=== PATIENT | female | born 1955 | race Caucasian/White ===

== ENCOUNTER → 2017-04-10 | Outpatient (CLI) | payer OTHER, MEDICAID | LOC: BRMIMAGING 11:03 | PROVIDERS: ATTEND Internal Medicine Rheumatology | DX: M81.0 Age-related osteoporosis without current pathological fracture (principal) ==

== ENCOUNTER 2017-10-08 12:19 | Emergency (ER) | payer OTHER, MEDICAID ==
[2017-10-08 12:22] VITALS: TEMP 97.9
[2017-10-08] MEDS ORDERED: ONDANSETRON DISINTEGRATING 4 MG TAB ONE (12:34)
[2017-10-08] MEDS ORDERED: ONDANSETRON DISINTEGRATING 4 MG TAB PO ONE (12:35)
--- NOTE | 2017-10-08 12:52 | CPEKG ---
Heart Rate: 57 RR Interval: 1053 P-R Interval: 160 QRSD Interval: 76 QT Interval: 456 QTC Interval: 444 P Aragon: 58 QRS Aragon: 58 T Wave Aragon: -12 EKG Severity - BORDERLINE ECG - EKG Impression: SINUS RHYTHM EKG Impression: BORDERLINE T ABNORMALITIES, INFERIOR LEADS Electronically Signed By: Lidia Shell 08-Oct-2017 15:27:06
--- NOTE | 2017-10-08 13:06 | EDPHY ---
H & P Stated Complaint: "I have esophageal spasm";epigastric pain < 1hr;similiar past episodes HPI/ROS: CHIEF COMPLAINT: "I think I had an esophageal spasm" HISTORY OF PRESENT ILLNESS: The patient is a 62 y/o female complaining of severe esophageal and epigastric pain onset at 11:40, 2 hours ago. She has had prior episodes of esophageal spasms. During the first event, she though she was having a heart attack and went to urgent care. She reports all her cardiac tests were normal at that visit and that her symptoms improved with nitroglycerine. She has had multiple endoscopies that did not identify any obvious stricture. In the remote past she took medication for GERD, but has not felt the need for such medication in quite awhile. A remote endoscopy showed erosive gastritis, but she states that this was a long time ago. Her most recent prior episode of substernal pain occurred a month ago and resolved spontaneously after about 10-20 minutes. She did not seek medical attention. Today, she was sitting waiting for a ride when she developed substernal and epigastric pain extending vertically and radiating through to her back. She has associated nausea. Symptoms have improved since arrival here. She treats her symptoms with apple cider vinegar and has not taken antacid medication in a long time. No known cardiac disease, hypertension, hypercholesterolemia, diabetes REVIEW OF SYSTEMS: A ten point review of systems was performed and is negative with the exception of the items mentioned in the HPI. Past medical history: 1. Esophageal spasms per her report 2. Acid reflux 3. Remote history erosive gastritis 4. Rheumatoid arthritis - methotrexate, Plaquenil 5. Anxiety, depression, PTSD 6. Osteoarthritis 7. Osteopenia 8. Remote history of heavy alcohol use 9. Alopecia 10. Fibromyalgia Past surgical history: 1. Cholecystectomy 2. Knee surgery 3. Tonsillectomy Family history: Noncontributory Social history: Rare alcohol use. Disabled. [facility] of the [facility]. PCP: Dr. Ashley Arvizu. 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 General Appearance: Alert. Vital signs reviewed. Eyes: Pupils equal and round, no conjunctival injection, no discharge. Anicteric. ENT, Mouth: Mucous membranes are moist, no oropharyngeal erythema or edema. Neck: No lymphadenopathy, supple. Respiratory: Lungs are clear to auscultation; no wheezes, rales, or rhonchi. Cardiovascular: Regular rate and rhythm; no murmur, rub, or gallop. Gastrointestinal: Abdomen is soft and nontender, no masses or organomegaly, bowel sounds normal. Skin: Warm and dry, no rashes on exposed skin, normal color. Back: Nontender to palpation over the thoracolumbar spine. No CVAT. Extremities: No lower extremity edema, no calf tenderness or swelling. Neurological: Alert and oriented. Moving all four extremities easily and equally. Psychiatric: Normal affect. - Personal History Current Tetanus Diphtheria and Acellular Pertussis (TDAP): Yes Tetanus Vaccine Date: 2011 - Medical/Surgical History Hx Asthma: No Hx Chronic Respiratory Disease: No Hx Diabetes: No Hx Cardiac Disease: No Hx Renal Disease: No Hx Cirrhosis: No Hx Alcoholism: No Hx HIV/AIDS: No Hx Splenectomy or Spleen Trauma: No Other PMH: Depression, anxiety, insomnia, fibromyalgia, arthritis, GERD, esophageal spasms, cholecystectomy, benign breast tumor, tonsillectomy, bilateral knee surgeries, bilateral wrist surgeries - Social History Smoking Status: Former smoker Constitutional: Initial Vital Signs Temperature (C) 36.6 C 10/08/17 12:19 Heart Rate 66 10/08/17 12:19 Respiratory Rate 20 10/08/17 12:19 Blood Pressure 122/73 H 10/08/17 12:19 O2 Sat (%) 100 10/08/17 12:19 O2 Delivery Mode Room Air Allergies/Adverse Reactions: latex [Latex] Allergy (Unknown, Verified 10/08/17 12:19) allergy test- anaphlaxis. asthma gabapentin Allergy (Verified 10/08/17 12:19) soy Allergy (Verified 10/08/17 12:19) Home Medications: Medication Instructions Recorded Oxycodone Ir [Oxy Ir 5 mg (RX)] 15 mg PO Q6H 05/21/12 traZODone [traZODone 150MG (*)] 150 mg PO HS 05/21/12 Ranitidine HCl [Ranitidine HCl 150 150 mg PO HS 09/17/13 mg] buPROPion XL [Wellbutrin 150mg XL] 300 mg PO DAILY 09/17/13 Albuterol [Ventolin Hfa Inhaler] 1 puffs IH Q4H PRN 01/20/16 Dexlansoprazole [Dexilant] 60 mg PO DAILY 02/25/16 Diclofenac Sodium 1% [Voltaren Gel 1 epifanio TP QID PRN 01/20/16 (*)] Hydroxychloroquine Sulfate 300 mg PO DAILY 01/20/16 [Plaquenil 200 mg (*)] Leflunomide [Arava 20 mg (*)] 20 mg PO DAILY 07/20/16 Buprenorphine [Butrans 20 mcg/hr] 1 each TD Q7D 07/22/16 FLUoxetine [Prozac 10 MG (*)] 10 mg PO DAILY 07/22/16 Fluticasone Nasal [Flonase Nasal 1 sprays NASAL DAILY 07/22/16 [place]] Herbals/Supplements -Info Only 1 ea PO DAILY 07/22/16 Lidocaine 5% [Lidoderm 5% Patch 1 ea TD DAILY 07/22/16 (*)] Melatonin [Melatonin 3 MG (*)] 3 mg PO HS 07/22/16 Olopatadine HCl [Patanase] 2 sprays EACHNARE BID 07/22/16 [place]-3 Fatty Acids [Fish Oil 1000 1,000 mg PO DAILY 07/22/16 mg (*)] Hyoscyamine Sulfate [Levsin, 0.125 - 0.25 mg SL Q4H PRN #20 tab 07/23/16 [place]ax-Sl 0.125 mg (*)] Levothyroxine [Synthroid 137 mcg 137 mcg PO DAILY06 #30 tab 07/23/16 (*)] Medical Decision Making - Diagnostics Imaging Results: Imaging Impressions Chest X-Ray 10/08/17 13:47 Impression: 1. Right middle lobe calcified granuloma. 2. No acute pneumonia. 3. No pneumothorax. Imaging: I viewed and interpreted images myself ED Course/Re-evaluation: This is a 62 y/o female with a reported history of esophageal spasms who presents with a 2-hour history of esophageal and epigastric pain. Her pain has improved since arrival here, though she continues to have nausea. Her exam is unremarkable. Plan for IV, labs, EKG, chest x-ray, and symptom management. Her 1st troponin will not be very sensitive due to short duration of symptoms. 4mg IV Zofran, 0.4mg SL Nitrostat, and 20mg IV famotidine administered. The 12 lead EKG was interpreted by myself. Sinus mechanism rate 57. See hard copy and/or "tracemaster" electronic copy for interpretation. 1450: Reevaluated patient and discussed results thus far. Her pain has improved with nitro. Troponin and lipase are still pending. Her LFTs are notably elevated compared to prior labs. She says her cold roll catcher checks LFTs every 3 months. She did have a slight elevation when they were last checked. She is being given copies of these labs to share with her cold roll catcher. Lipase is normal. She remained pain free throughout the rest of her emergency department stay. Initial troponin is normal. She has a HEART score of 1, for age between 45 and 65. I feel that she is low risk for coronary artery disease. She has seen Dr. Migel Shahid in the past. She is comfortable returning home. We reviewed the danger signs that should prompt her to return and she assures me that she will do so if she has required current chest pain. She will follow up with Dr. Shahid. She is also going to resume taking an acid blocking medication. In the past she has taken Zantac successfully. She has this at home. Differential Diagnosis: Chest pain including but not limited to myocardial ischemia, esophageal spasm, pulmonary embolus, chest wall pain, pleural inflammation and pulmonary infectious causes. - Data Points Laboratory Results: Laboratory Results 10/08/17 13:20 10/08/17 13:20 10/08/17 10/08/17 10/08/17 13:20 13:20 13:20 WBC 6.22 10^3/uL 10^3/uL (3.80-9.50) RBC 4.13 10^6/uL L 10^6/uL (4.18-5.33) Hgb 12.8 g/dL g/dL (12.6-16.3) Hct 37.2 % L % (38.0-47.0) MCV 90.1 fL fL (81.5-99.8) MCH 31.0 pg pg (27.9-34.1) MCHC 34.4 g/dL g/dL (32.4-36.7) RDW 13.5 % % (11.5-15.2) Plt Count 186 10^3/uL 10^3/uL (150-400) MPV 10.2 fL fL (8.7-11.7) Neut % (Auto) 55.9 % % (39.3-74.2) Lymph % (Auto) 35.5 % % (15.0-45.0) [place] % (Auto) 7.1 % % (4.5-13.0) Eos % (Auto) 0.8 % % (0.6-7.6) Baso % (Auto) 0.5 % % (0.3-1.7) Nucleat RBC Rel Count 0.0 % % (0.0-0.2) Absolute Neuts (auto) 3.48 10^3/uL 10^3/uL (1.70-6.50) Absolute Lymphs (auto) 2.21 10^3/uL 10^3/uL (1.00-3.00) Absolute Monos (auto) 0.44 10^3/uL 10^3/uL (0.30-0.80) Absolute Eos (auto) 0.05 10^3/uL 10^3/uL (0.03-0.40) Absolute Basos (auto) 0.03 10^3/uL 10^3/uL (0.02-0.10) Absolute Nucleated RBC 0.00 10^3/uL 10^3/uL (0-0.01) Immature Gran % 0.2 % % (0.0-1.1) Immature Gran # 0.01 10^3/uL 10^3/uL (0.00-0.10) Sodium 135 mEq/L mEq/L (134-144) Potassium 3.8 mEq/L mEq/L (3.5-5.2) Chloride 103 mEq/L mEq/L (97-110) Carbon Dioxide 21 mEq/l L mEq/l (22-31) Anion Gap 11 mEq/L mEq/L (8-16) BUN 19 mg/dL mg/dL (7-23) Creatinine 1.0 mg/dL mg/dL (0.6-1.0) Estimated GFR 56 Glucose 76 mg/dL mg/dL (70-100) Calcium 9.3 mg/dL mg/dL (8.5-10.4) Total Bilirubin 0.5 mg/dL mg/dL (0.1-1.4) AST 276 IU/L H IU/L (14-46) ALT 204 IU/L H IU/L (9-52) Alkaline Phosphatase 98 IU/L IU/L (38-126) Troponin I 0.012 ng/mL ng/mL (0.000-0.034) Total Protein 6.3 g/dL g/dL (6.3-8.2) Albumin 4.1 g/dL g/dL (3.5-5.0) Lipase 68 IU/L IU/L (23-300) Medications Given: Nitroglycerin (Nitrostat) 0.4 mg SL Q5M PRN PRN Reason: Chest Pain Last Admin: 10/08/17 14:02 Dose: 0.4 mg Discontinued Medications Famotidine/Sodium Chloride (Pepcid 20 Mg (Premix)) 50 mls @ 200 mls/hr IV EDNOW ONE Stop: 10/08/17 14:02 Last Admin: 10/08/17 14:01 Dose: 50 mls Ondansetron HCl (Zofran Odt) 4 mg PO EDNOW ONE Stop: 10/08/17 12:36 Last Admin: 10/08/17 12:39 Dose: 4 mg Ondansetron HCl (Zofran) 4 mg IVP EDNOW ONE Stop: 10/08/17 13:49 Last Admin: 10/08/17 14:01 Dose: 4 mg Oxycodone HCl (Oxycodone Ir) 15 mg PO ONCE ONE Stop: 10/08/17 15:09 Last Admin: 10/08/17 15:40 Dose: 15 mg Departure - Departure Disposition: Home, Routine, Self-Care Clinical Impression: Elevated LFTs Chest pain Qualifiers: Chest pain type: other chest pain Qualified Code(s): R07.89 - Other chest pain Condition: Good Instructions: Chest Pain (ED) Additional Instructions: Call Dr. Shahid tomorrow and let him know about today's ED visit. If you have recurrent pain you should return for re-evaluation. Referrals: Ashley Arvizu MD [Primary Care Provider] - As per Instructions Italo Shahid MD [Medical Doctor] - As per Instructions Report Scribed for: Lidia Shell Report Scribed by: Lin Forte Date of Report: 10/08/17 Time of Report: 13:49 Physician Review and Approval Statement: 10/08/17 13:06 Portions of this note were transcribed by the site medical director. I, Dr. Lidia Shell, personally performed the history, physical exam, and medical decision- making; and confirmed the accuracy of the information in the transcribed note.
[2017-10-08 13:28] VITALS: PULSE 65; RESP 18
[2017-10-08 13:32] LABS: % IMMATURE GRANULYOCYTES 0.2 % (0.0-1.1); ABSOLUTE IMMATURE GRANULOCYTES 0.01 10^3/uL (0.00-0.10); ADD DIFF? NO; ADD MORPH? NO; ADD SCAN? NO; ATYPICAL LYMPHOCYTE FLAG 10 (0-99); FRAGMENT RBC FLAG 0 (0-99); HEMATOCRIT 37.2 % (38.0-47.0); HEMOGLOBIN 12.8 g/dL (12.6-16.3); LEFT SHIFT FLG 0 (0-99); LIPEMIA HEMOLYSIS FLAG 90 (0-99); MEAN CELL HEMOGLOBIN CONCENTR. 34.4 g/dL (32.4-36.7); MEAN CELL VOLUME 90.1 fL (81.5-99.8); MEAN PLATELET VOLUME 10.2 fL (8.7-11.7); PLATELET CLUMPS FLAG 0 (0-99); PLATELET COUNT 186 10^3/uL (150-400); RED BLOOD CELL COUNT 4.13 10^6/uL (4.18-5.33); RED CELL DISTRIBUTION WIDTH 13.5 % (11.5-15.2)
[2017-10-08 13:45] LABS: ALANINE AMINOTRANSFERASE 204 IU/L (9-52); ALBUMIN 4.1 g/dL (3.5-5.0); ALKALINE PHOSPHATASE 98 IU/L (38-126); ANION GAP 11 mEq/L (8-16); ASPARTATE AMINOTRANSFERASE 276 IU/L (14-46); BILIRUBIN,TOTAL 0.5 mg/dL (0.1-1.4); CALCIUM 9.3 mg/dL (8.5-10.4); CARBON DIOXIDE 21 mEq/l (22-31); CHLORIDE 103 mEq/L (97-110); GLOMERULAR FILTRATION RATE 56; GLUCOSE 76 mg/dL (70-100); POTASSIUM 3.8 mEq/L (3.5-5.2); SODIUM 135 mEq/L (134-144); TOTAL PROTEIN 6.3 g/dL (6.3-8.2)
[2017-10-08] MEDS ORDERED: NITROGLYCERIN 0.4 MG BTL SL PRN (13:47)
[2017-10-08] MEDS ORDERED: ONDANSETRON 4 MG/2 ML VIAL IVP ONE (13:48)
[2017-10-08] MEDS ORDERED: FAMOTIDINE 20 MG/NACL 50 ML IV ONE (13:48)
[2017-10-08] MEDS ORDERED: oxyCODONE IR 15 MG TAB PO ONE (15:08)
[2017-10-08 15:16] LABS: TROPONIN I 0.012 ng/mL (0.000-0.034)
[2017-10-08 15:41] VITALS: BP 133/83; O2SAT 97
== END 2017-10-08 16:05 | disposition home or self-care (01) ==
DX: R07.89 Other chest pain (principal); R94.5 Abnormal results of liver function studies; Z85.3 Personal history of malignant neoplasm of breast; Z87.891 Personal history of nicotine dependence; Z91.040 Latex allergy status
CPT/HCPCS: 71020; 93005; 96374; 96375; 99285; J2405

== ENCOUNTER 2018-02-16 11:12 | Emergency (ER) | payer OTHER, MEDICAID ==
[2018-02-16 11:21] VITALS: TEMP 98.8
--- NOTE | 2018-02-16 11:26 | EDPHY ---
H & P Stated Complaint: fever, body aches, flu like symptoms Time Seen by Provider: 02/16/18 11:26 HPI/ROS: HPI: This is a 62-year-old female who presents with Chief Complaint: fever, body aches, flu like symptoms Location: Body Quality: Aches Duration: Since this morning Signs and Symptoms: no fever, + nausea, no vomiting, no hematemesis, no blood in stool, no abdominal bloating, no diarrhea, no back pain, no urinary symptoms , no vaginal bleeding discharge, no indigestion, no chest pain, no shortness of breath Timing: Acute on chronic Severity: Moderate to severe Context: Patient has a history of depression, fibromyalgia, rheumatoid arthritis presents with multiple somatic complaints that worsened this morning. Patient reports she has recently changed primary care providers and is scheduled to see her new primary care provider Dr. Funk on Sunday. Received influenza vaccine this year. Patient complains of generalized body aches, "not feeling right in something is wrong", nonproductive cough, nausea, lower abdominal fullness. Patient reports she has a decreased appetite. Pain regimen medication includes Butrans patch and oxycodone p.r.n. Denies any headaches her history of migraine headaches. History of lung disease. Modifying Factors: Normal medication Comment: ROS: see HPI Constitutional: No fever, no chills, no weight loss Eyes: No blurred vision Respiratory: No shortness of breath, + cough Cardiovascular: No chest pain, no palpitations Gastrointestinal: No nausea, no vomiting, no diarrhea, no hematemesis, no blood in stool Genitourinary: No dysuria, no blood in urine Extremities: No myalgias, no edema Neurologic: No weakness, no numbness Skin: No rashes, no petechiae Hematologic: No bruising, no bleeding MEDICAL/SURGICAL/SOCIAL HISTORY: Medical/surgical history: Depression, anxiety, insomnia, fibromyalgia, arthritis, GERD, esophageal spasms, cholecystectomy, benign breast tumor, tonsillectomy, bilateral knee surgeries, bilateral wrist surgeries Social history: Unemployed. CONSTITUTIONAL: Chronically ill-appearing white female with a flat affect, sitting in a dark room using her ball cap to shield the light coming from over the sink, awake and alert, no obvious distress HEENT: Atraumatic and normocephalic, PERRL, EOMI. Tympanic membranes clear. Oropharynx clear, no exudate and moist pink mucosa. Airway patent. No lymphadenopathy. No meningismus. Cardiovascular: Normal S1/S2, regular rate, regular rhythm, without murmur rub or gallop. PULMONARY/CHEST: Symmetrical and nontender. Clear to auscultation bilaterally. Good air movement. No accessory muscle usage. ABDOMEN: Soft, nondistended, nontender, no rebound, no guarding, no peritoneal signs, no masses or organomegaly. No CVAT. EXTREMITIES: 2/2 pulses, strength 5/5, no deformities, no clubbing, no cyanosis or edema. NEUROLOGICAL: no focal neuro deficits. GCS 15. SKIN: Warm and dry, pallor, no erythema. no rash. Good capillary refill. Source: Patient Exam Limitations: No limitations - Personal History Current Tetanus Diphtheria and Acellular Pertussis (TDAP): No Tetanus Vaccine Date: 2011 - Medical/Surgical History Hx Asthma: No Hx Chronic Respiratory Disease: No Hx Diabetes: No Hx Cardiac Disease: No Hx Renal Disease: No Hx Cirrhosis: No Hx Alcoholism: No Hx HIV/AIDS: No Hx Splenectomy or Spleen Trauma: No Other PMH: Depression, anxiety, insomnia, fibromyalgia, arthritis, GERD, esophageal spasms, cholecystectomy, benign breast tumor, tonsillectomy, bilateral knee surgeries, bilateral wrist surgeries - Social History Smoking Status: Former smoker Constitutional: Initial Vital Signs Temperature (C) 37.1 C 02/16/18 11:17 Heart Rate 68 02/16/18 11:17 Respiratory Rate 16 02/16/18 11:17 Blood Pressure 107/49 L 02/16/18 11:17 O2 Sat (%) 96 02/16/18 11:17 O2 Delivery Mode Room Air Allergies/Adverse Reactions: latex [Latex] Allergy (Unknown, Verified 10/08/17 12:19) allergy test- anaphlaxis. asthma gabapentin Allergy (Verified 10/08/17 12:19) soy Allergy (Verified 10/08/17 12:19) Home Medications: Medication Instructions Recorded Oxycodone Ir [Oxy Ir 5 mg (RX)] 15 mg PO Q6H 05/21/12 traZODone [traZODone 150MG (*)] 150 mg PO HS 05/21/12 Ranitidine HCl [Ranitidine HCl 150 150 mg PO HS 09/17/13 mg] buPROPion XL [Wellbutrin 150mg XL] 300 mg PO DAILY 09/17/13 Albuterol [Ventolin Hfa Inhaler] 1 puffs IH Q4H PRN 01/20/16 Dexlansoprazole [Dexilant] 60 mg PO DAILY 01/20/16 Diclofenac Sodium 1% [Voltaren Gel 1 epifanio TP QID PRN 01/20/16 (*)] Hydroxychloroquine Sulfate 300 mg PO DAILY 01/20/16 [Plaquenil 200 mg (*)] Leflunomide [Arava 20 mg (*)] 20 mg PO DAILY 07/20/16 Buprenorphine [Butrans 20 mcg/hr] 1 each TD Q7D 07/22/16 FLUoxetine [Prozac 10 MG (*)] 10 mg PO DAILY 07/22/16 Fluticasone Nasal [Flonase Nasal 1 sprays NASAL DAILY 07/22/16 [place]] Herbals/Supplements -Info Only 1 ea PO DAILY 07/22/16 Lidocaine 5% [Lidoderm 5% Patch] 1 ea TD DAILY 07/22/16 Melatonin [Melatonin 3 MG (*)] 3 mg PO HS 07/22/16 Olopatadine HCl [Patanase] 2 sprays EACHNARE BID 07/22/16 [place]-3 Fatty Acids [Fish Oil 1000 1,000 mg PO DAILY 07/22/16 mg (*)] Hyoscyamine Sulfate [Levsin, 0.125 - 0.25 mg SL Q4H PRN #20 tab 07/23/16 Hyomax-Sl 0.125 mg (*)] Levothyroxine [Synthroid 137 mcg 137 mcg PO DAILY06 #30 tab 07/23/16 (*)] Medical Decision Making - Diagnostics Imaging Results: Imaging Impressions Chest X-Ray 02/16/18 12:02 Impression: No source for pain identified. ED Course/Re-evaluation: Chest x-ray, urinalysis, labs, blood cultures ordered Patient requesting to receive 1 L normal saline Urinalysis grossly unremarkable. Labs grossly unremarkable except for serum glucose of 61; patient admits that she does not eat frequently and does not eat significant amount of food. Chest x-ray my read shows no opacity, no effusion, no pneumothorax, no widened mediastinum Advised supportive care and follow up with PCP This patient was seen under the supervision of my secondary supervising physician. I evaluated care for this patient independently. Discussed this patient with who did not see the patient. Differential Diagnosis: Differential including but not limited to viral syndromes including influenza, urinary tract infection, pneumonia and sepsis. - Data Points Laboratory Results: Laboratory Results 02/16/18 13:06 02/16/18 13:06 02/16/18 02/16/18 02/16/18 13:06 13:06 12:08 WBC 7.59 10^3/uL 10^3/uL (3.80-9.50) RBC 4.35 10^6/uL 10^6/uL (4.18-5.33) Hgb 13.1 g/dL g/dL (12.6-16.3) Hct 39.4 % % (38.0-47.0) MCV 90.6 fL fL (81.5-99.8) MCH 30.1 pg pg (27.9-34.1) MCHC 33.2 g/dL g/dL (32.4-36.7) RDW 12.9 % % (11.5-15.2) Plt Count 173 10^3/uL 10^3/uL (150-400) MPV 10.3 fL fL (8.7-11.7) Neut % (Auto) 64.7 % % (39.3-74.2) Lymph % (Auto) 26.0 % % (15.0-45.0) [place] % (Auto) 8.3 % % (4.5-13.0) Eos % (Auto) 0.4 % L % (0.6-7.6) Baso % (Auto) 0.3 % % (0.3-1.7) Nucleat RBC Rel Count 0.0 % % (0.0-0.2) Absolute Neuts (auto) 4.92 10^3/uL 10^3/uL (1.70-6.50) Absolute Lymphs (auto) 1.97 10^3/uL 10^3/uL (1.00-3.00) Absolute Monos (auto) 0.63 10^3/uL 10^3/uL (0.30-0.80) Absolute Eos (auto) 0.03 10^3/uL 10^3/uL (0.03-0.40) Absolute Basos (auto) 0.02 10^3/uL 10^3/uL (0.02-0.10) Absolute Nucleated RBC 0.00 10^3/uL 10^3/uL (0-0.01) Immature Gran % 0.3 % % (0.0-1.1) Immature Gran # 0.02 10^3/uL 10^3/uL (0.00-0.10) Sodium 140 mEq/L mEq/L (135-145) Potassium 4.0 mEq/L mEq/L (3.5-5.2) Chloride 103 mEq/L mEq/L (97-110) Carbon Dioxide 28 mEq/l mEq/l (22-31) Anion Gap 9 mEq/L mEq/L (8-16) BUN 16 mg/dL mg/dL (7-23) Creatinine 0.9 mg/dL mg/dL (0.6-1.0) Estimated GFR > 60 Glucose 64 mg/dL L mg/dL (70-100) Calcium 8.7 mg/dL mg/dL (8.5-10.4) Total Bilirubin 0.5 mg/dL mg/dL (0.1-1.4) Conjugated Bilirubin 0.3 mg/dL mg/dL (0.0-0.5) Unconjugated Bilirubin 0.2 mg/dL mg/dL (0.0-1.1) AST 121 IU/L H IU/L (14-46) ALT 118 IU/L H IU/L (9-52) Alkaline Phosphatase 91 IU/L IU/L (38-126) Total Protein 6.8 g/dL g/dL (6.3-8.2) Albumin 4.1 g/dL g/dL (3.5-5.0) Urine Color PALE YELLOW Urine Appearance CLEAR Urine pH 5.0 (5.0-7.5) Ur Specific [place] 1.002 (1.002-1.030) Urine Protein NEGATIVE (NEGATIVE) Urine Ketones NEGATIVE (NEGATIVE) Urine Blood NEGATIVE (NEGATIVE) Urine Nitrate NEGATIVE (NEGATIVE) Urine Bilirubin NEGATIVE (NEGATIVE) Urine Urobilinogen NEGATIVE EU EU (0.2-1.0) Ur Leukocyte Esterase NEGATIVE (NEGATIVE) Urine Glucose NEGATIVE (NEGATIVE) Medications Given: Discontinued Medications Sodium Chloride (Ns) 1,000 mls @ 0 mls/hr IV ONCE ONE; Wide Open PRN Reason: Protocol Stop: 02/16/18 12:03 Last Admin: 02/16/18 12:20 Dose: 1,000 mls Departure - Departure Disposition: Home, Routine, Self-Care Clinical Impression: Low blood sugar reading Condition: Good Instructions: Non-diabetic Hypoglycemia (ED) Additional Instructions: Eat approximately every 2-3 hours or 5-6 small snacks throughout the day. Chest x-ray today shows no signs of pneumonia, pleural effusion, fracture, collapsed lung. Labs and urinalysis are grossly unremarkable. Blood cultures have been taken and sent off. If these are positive, you will be called by the emergency room. Follow-Up: Please follow-up as noted above. Follow-up sooner if your condition worsens or if you develop any new problems. Call as soon as possible for an appointment. Be clear when you call for an appointment that this is an Emergency Department follow-up. Contact the Emergency Department if you have trouble arranging follow-up care. Our referrals are not based on your insurance network. When time allows, contact your insurance carrier to verify the referral physician is in your plan. If not, get a referral for an in-networking specialist. Referrals: Ingrid Funk MD [Primary Care Provider] - 2-3 days, if not improved
[2018-02-16] MEDS ORDERED: NS 1,000 ML IV ONE (12:02)
[2018-02-16 13:15] LABS: PLATELET COUNT 173 10^3/uL (150-400)
[2018-02-16 13:59] VITALS: BP 120/71; PULSE 73; RESP 18; O2SAT 95
== END 2018-02-16 13:59 | disposition home or self-care (01) ==
DX: E16.2 Hypoglycemia, unspecified (principal); E86.9 Volume depletion, unspecified; Z87.891 Personal history of nicotine dependence; Z91.040 Latex allergy status

== ENCOUNTER 2018-04-05 13:24 | Day surgery (SDC) | payer OTHER, MEDICAID ==
[2018-04-05] MEDS ORDERED: LR 1,000 ML IV ONE (14:07)
[2018-04-05] MEDS ORDERED: fentaNYL 100 MCG/2 ML INJ ONE (14:33)
[2018-04-05] MEDS: fentaNYL 100 MCG/2 ML INJ IVP PRN ×2 (14:34→14:43)
--- NOTE | 2018-04-05 14:37 | PDGENHP ---
History & Physical Chief Complaint: diarrhea History of Present Illness: 62 year old female presents for evaluatoin of diarrhea. Pertinent Past, Social, Family History: PMHx: pulm htn. PsurgHx: CCy, breast bx Relevant Physical Exam: HEENT: anicteric. CV: RRR +s1s2. Lungs: CTAB No w/r/ r. Abd: soft, nt, + bs. No guarding or rebound Cardiorespiratory Assessment: ASA 2
--- NOTE | 2018-04-05 14:54 | PDANEPAE ---
ANE History of Present Illness colonoscopy ANE Past Medical History - Cardiovascular History Hx Hypertension: No Hx Arrhythmias: No Hx Chest Pain: No Hx Coronary Artery / Peripheral Vascular Disease: No Hx CHF / Valvular Disease: No Hx Palpitations: No Cardiovascular History Comment: was seen at [facility] in 2016 - Pulmonary History Hx COPD: No Hx Asthma/Reactive Airway Disease: Yes Hx Recent Upper Respiratory Infection: No Hx Oxygen in Use at Home: No Hx Sleep Apnea: No Sleep Apnea Screening Result - Last Documented: Negative Pulmonary History Comment: allergies and smoke trigger asthma- instructed pt to bring rescue inhaler - Neurologic History Hx Cerebrovascular Accident: No Hx Seizures: No Hx Dementia: No Neurologic History Comment: arthritis in neck and back - Endocrine History Hx Diabetes: No Endocrine History Comment: hypothyroidism. hypoglycemia - Renal History Hx Renal Disorders: Yes Renal History Comment: hx of cystitis. overactive bladder - Liver History Hx Hepatic Disorders: No Hepatic History Comment: hx of elevated LFT's- have gone back to normal - Neurological & Psychiatric Hx Hx Neurological and Psychiatric Disorders: Yes Neurological / Psychiatric History Comment: anxiety. depression. ptsd - Cancer History Hx Cancer: No - Congenital Disorder History Hx Congenital Disorders: No - GI History Hx Gastrointestinal Disorders: Yes Gastrointestinal History Comment: reflux. nausea. hx of gastritis. occ constipation, not very often. diarrhea x 2 months - Other Health History Other Health History: dental crowns. alopecia. RA. OA. current skin issue either form of dermatitis or lupus rash, director operating is following and will treat after colonoscopy - Chronic Pain History Chronic Pain: Yes (fibromyalgia) - Surgical History Prior Surgeries: cath 12/17/14. eus, ercp with Felix 07/19/14. lap an with Shankar. DENTAL EXTRACTION 05/2014. TUBAL LIGATION. REMVL BARTHOLIN CYST. RT BREAST BX. TONSILLECTOMY. REBEKAH CORNEAL EROSION. RT WRIST REPAIR. RT KNEE SCOPE ANE Review of Systems Review of systems is: negative Review of Systems: - Exercise capacity METS (RN): 4 METS ANE Patient History - Allergies Allergies/Adverse Reactions: duloxetine [From Cymbalta] Allergy (Verified 04/05/18 14:43) sweating badly, unable to remember full reaction gabapentin Allergy (Verified 04/05/18 14:43) unable to walk, feels like she has been heavily drugged latex [Latex] Allergy (Verified 04/05/18 14:43) allergy test- anaphlaxis. asthma milnacipran [From Savella] Allergy (Verified 04/05/18 14:43) sweating profusely and feeling bad morphine Allergy (Verified 04/05/18 14:43) Rash pregabalin [From Lyrica] Allergy (Verified 04/05/18 14:43) hallucinations soy Allergy (Verified 04/05/18 14:43) positive on allergy test - Home Medications Home medications: home medication list seen and reviewed Home Medications: Oxycodone Ir [Oxy Ir 5 mg (RX)] QID 05/21/12 [Last Taken 04/05/18] traZODone [traZODone 150MG (*)] 05/21/12 [Last Taken 04/04/18] buPROPion XL [Wellbutrin 150mg XL] 09/17/13 [Last Taken 04/05/18] Albuterol [Ventolin Hfa Inhaler] Q4H PRN 01/20/16 [Last Taken 04/04/18] Hydroxychloroquine Sulfate [Plaquenil 200 mg (*)] 01/20/16 [Last Taken 04/03/18 ] Buprenorphine [Butrans 20 mcg/hr] TD Q7D 07/22/16 [Last Taken 04/04/18] FLUoxetine [Prozac 10 MG (*)] 07/22/16 [Last Taken 04/05/18] Herbals/Supplements -Info Only 07/22/16 [Last Taken 04/04/18] Olopatadine HCl [Patanase] 07/22/16 [Last Taken 04/04/18] Ativan PRN PRN 04/04/18 [Last Taken 04/04/18] Famotidine 04/04/18 [Last Taken 04/05/18] Levothyroxine [Synthroid 137 mcg (*)] 04/04/18 [Last Taken 04/05/18] Orencia 04/04/18 [Last Taken 04/04/18] Restasis Opht Drops(*) 04/04/18 [Last Taken 04/04/18] Zofran 04/04/18 [Last Taken Unknown] - NPO status NPO Since - Liquids (Date): 04/05/18 NPO Since - Liquids (Time): 11:45 NPO Since - Solids (Date): 04/04/18 NPO Since - Solids (Time): 09:00 - Anes Hx Anes Hx: no prior problems - Smoking Hx Smoking Status: Former smoker - Family Anes Hx Family Anes Hx: none Family Hx Anesthesia Complications: none ANE Labs/Vital Signs - Vital Signs Blood Pressure: 130/74 Heart Rate: 88 Respiratory Rate: 14 O2 Sat (%): 95 Height: 157.48 cm Weight: 51.256 kg ANE Physical Exam - Airway Neck exam: FROM Mallampati Score: Class 1 Mouth exam: normal dental/mouth exam - Pulmonary Pulmonary: no respiratory distress - Cardiovascular Cardiovascular: regular rate and rhythym - ASA Status ASA Status: II
[2018-04-05] MEDS ORDERED: fentaNYL 100 MCG/2 ML INJ IVP ONE (14:58)
[2018-04-05] MEDS ORDERED: LIDOCAINE 2% 100 MG/5 ML SYR ONE (15:36)
[2018-04-05] MEDS ORDERED: PROPOFOL/EMULSION 500 MG/50 ML BOTTLE IV ONE (15:36)
[2018-04-05] MEDS ORDERED: oxyCODONE IR 5 MG TAB PO PRN (15:56)
[2018-04-05] MEDS ORDERED: fentaNYL 100 MCG/2 ML INJ IVP PRN (15:56)
[2018-04-05] MEDS ORDERED: PROMETHAZINE HCL 25 MG/ML INJ IVP PRN (15:56)
[2018-04-05] MEDS ORDERED: NALOXONE HCL 0.4 MG/ML INJ IVP PRN (15:56)
[2018-04-05] MEDS ORDERED: HYDROCODONE/APAP 5/325 TAB PO PRN (15:56)
[2018-04-05] MEDS ORDERED: ACETAMINOPHEN 500 MG TAB PO PRN (15:56)
[2018-04-05] MEDS ORDERED: DEXAMETHASONE 4 MG/ML VIAL IVP PRN (15:56)
[2018-04-05] MEDS ORDERED: HYDROmorphONE/DILAUDID 2 MG/ML INJ IVP PRN (15:56)
[2018-04-05] MEDS ORDERED: ONDANSETRON 4 MG/2 ML VIAL IVP PRN (15:56)
--- NOTE | 2018-04-05 15:56 | POSTANESTH ---
Post Anesthetic Evaluation Cardiovascular Status: Normal, Stable, Similar to Pre-Op Cond Respiratory Status: Normal, Stable, Similar to Pre-op Cond. Level of Consciousness/Mental Status: Can Participate in Eval, Moderately Sleepy Pain Control: Adequate, Prn Tx Ordered Nausea/Vomiting Control: Adequate, Prn Tx Ordered Complications Possibly Related to Anesthesia: None Noted
--- NOTE | 2018-04-05 16:20 | GIREPORT ---
[facility] Surgical Services - Endoscopy Department Patient Name: Jian Oates Procedure Date: 04/05/2018 3:37 PM Patient Type: Outpatient Attending MD/ ER Physician: Stalin Washington MD Procedure: Colonoscopy Indications: Chronic diarrhea Patient Profile: 62 year old female with a history of polyps presents for evaluation of diarrhea. Providers: Stalin Washington MD Medicines: Monitored Anesthesia Care Complications: No immediate complications. Estimated blood loss: Minimal. Description of Procedure: After obtaining informed consent, the scope was passed under direct vis ion. Throughout the procedure, the patient's blood pressure, pulse, and oxyg en saturations were monitored continuously. The Colonoscope with irrigatio n channel was introduced through the anus and advanced to the terminal il eum. The colonoscopy was performed without difficulty. The patient tolerated the procedure well. The quality of the bowel preparation was good. The term inal ileum, ileocecal valve, appendiceal orifice, and rectum were photograph ed. Findings: The perianal and digital rectal examinations were normal. Pertinent negatives include no palpable rectal lesions. The terminal ileum appeared normal. A 4 mm polyp was found in the ascending colon. The polyp was sessile. T he polyp was removed with a cold snare. Resection and retrieval were compl ete. Biopsies for histology were taken with a cold forceps for evaluation of microscopic colitis. Estimated Blood Loss: Estimated blood loss was minimal. Post Op Diagnosis: - The examined portion of the ileum was normal. - One 4 mm polyp in the ascending colon, removed with a cold snare. Res ected and retrieved. - Biopsies were taken with a cold forceps for evaluation of microscopic colitis. Recommendation: - Discharge patient to home (with escort). - Resume previous diet. - Continue present medications. - Repeat colonoscopy in 5 years for surveillance. - Await pathology results. Attending Participation: I personally performed the entire procedure. Stalin Washington MD Stalin Washington MD 04/05/2018 4:20:10 PM This report has been signed electronicallyStalin Washington MD Number of Addenda: 0 Note Initiated On: 04/05/2018 3:37 PM Total Procedure Duration Time 0 hours 24 minutes 9 seconds [email or web address]
[2018-04-05 17:26] VITALS: BP 123/70
== END 2018-04-05 17:30 | disposition home or self-care (01) ==
LOC: FSGY 13:24
PROVIDERS: ATTEND Internal Medicine Gastroenterology
PROC: 0DBK8ZX Excision of Ascending Colon, Via Natural or Artificial Opening Endoscopic, Diagnostic (ICD-10-PCS; principal; 2018-04-05 14:45)
PROC: 0DBE8ZX Excision of Large Intestine, Via Natural or Artificial Opening Endoscopic, Diagnostic (ICD-10-PCS; principal; 2018-04-05 14:45)
DX: D12.2 Benign neoplasm of ascending colon (principal); R19.7 Diarrhea, unspecified; R10.31 Right lower quadrant pain; E78.5 Hyperlipidemia, unspecified; F32.9 Major depressive disorder, single episode, unspecified; F41.9 Anxiety disorder, unspecified; F43.10 Post-traumatic stress disorder, unspecified; I10 Essential (primary) hypertension; M79.7 Fibromyalgia; R53.82 Chronic fatigue, unspecified; I27.20 Pulmonary hypertension, unspecified; I36.1 Nonrheumatic tricuspid (valve) insufficiency; E03.9 Hypothyroidism, unspecified; M06.9 Rheumatoid arthritis, unspecified; Z87.891 Personal history of nicotine dependence; Z86.010 Personal history of colon polyps; Z82.49 Family history of ischemic heart disease and other diseases of the circulatory system
CPT/HCPCS: J2001; J2704; J3010

== ENCOUNTER 2018-05-13 10:30 | Emergency (ER) | payer OTHER, MEDICAID ==
[2018-05-13 11:16] LABS: PLATELET COUNT 173 10^3/uL (150-400)
--- NOTE | 2018-05-13 11:16 | CPEKG ---
Heart Rate: 51 RR Interval: 1176 P-R Interval: 144 QRSD Interval: 76 QT Interval: 444 QTC Interval: 409 P [place]: 46 QRS [place]: 50 T Wave [place]: -27 EKG Severity - BORDERLINE ECG - EKG Impression: SINUS RHYTHM EKG Impression: BORDERLINE R WAVE PROGRESSION, ANTERIOR LEADS EKG Impression: BORDERLINE T ABNORMALITIES, DIFFUSE LEADS Electronically Signed By: Lidia Shell 13-May-2018 15:02:55
--- NOTE | 2018-05-13 12:18 | EDPHY ---
H & P Stated Complaint: "Just not feeling well', and "cloudy head" for 32 days. Time Seen by Provider: 05/13/18 12:45 HPI/ROS: CHIEF COMPLAINT: "I'm just really spacey. My head feels even dizzy." HISTORY OF PRESENT ILLNESS: The patient is a 62 y/o female with rheumatoid arthritis complaining of feeling "spacey" and "dizzy" for the last few days. Her symptoms are vague and difficult for her to describe. She says, "I just don't feel well enough to do anything," "I feel chapis weak all over and puny." She gets mild headaches with some frequency, but denies any headache today. She also has some mild diarrhea, but she tends to get this after her Orencia injections. No focal weakness, paresthesias, cough, cold, chest pain, dyspnea, abdominal pain, vomiting, room- spinning dizziness, fever, urinary symptoms, leg swelling. REVIEW OF SYSTEMS: A ten point review of systems was performed and is negative with the exception of the items mentioned in the HPI. Past medical history: Rheumatoid arthritis - Orencia; heartburn Past surgical history: Colonoscopy 1 month ago, cholecystectomy Family history: Noncontributory Social history: Nonsmoker. Glass of wine. No illicit drugs. Not employed. PCP: Dr. Funk. General Appearance: Alert. Vital signs reviewed. Eyes: Pupils equal and round, no conjunctival injection, no discharge. Anicteric. ENT, Mouth: Mucous membranes are moist, no oropharyngeal erythema or edema. Neck: No lymphadenopathy, supple. No carotid bruit. Respiratory: Lungs are clear to auscultation; no wheezes, rales, or rhonchi. Cardiovascular: Regular rate and rhythm; no murmur, rub, or gallop. Gastrointestinal: Abdomen is soft with mild midepigastric tenderness, no masses or organomegaly. Skin: Warm and dry, no rashes on exposed skin, normal color. Back: Nontender to palpation over the thoracolumbar spine. No CVAT. Extremities: No lower extremity edema, no calf tenderness or swelling. Neurological: Alert and oriented. Moving all four extremities easily and equally. Cranial nerves II through XII are examined and are intact (visual acuity not tested). Strength is 5 over 5 bilaterally with testing of all major motor groups. Sensation is intact to light touch over all 4 extremities. Deep tendon reflexes are 2+ in the biceps and knees bilaterally. Gait is normal. [id number] is performed accurately. Psychiatric: Normal affect. - Personal History Current Tetanus Diphtheria and Acellular Pertussis (TDAP): Yes Tetanus Vaccine Date: 2011 - Medical/Surgical History Hx Asthma: Yes Hx Chronic Respiratory Disease: No Hx Diabetes: No Hx Cardiac Disease: No Hx Renal Disease: No Hx Cirrhosis: No Hx Alcoholism: No Hx HIV/AIDS: No Hx Splenectomy or Spleen Trauma: No Other PMH: Depression, anxiety, insomnia, fibromyalgia, arthritis, GERD, esophageal spasms, cholecystectomy, benign breast tumor, tonsillectomy, bilateral knee surgeries, bilateral wrist surgeries. RA.Lupus. Neuropathy. - Social History Smoking Status: Former smoker Constitutional: Initial Vital Signs Temperature (C) 36.6 C 05/13/18 10:31 Heart Rate 57 L 05/13/18 10:31 Respiratory Rate 16 05/13/18 10:31 Blood Pressure 114/75 05/13/18 10:31 O2 Sat (%) 97 05/13/18 10:31 O2 Delivery Mode Room Air Allergies/Adverse Reactions: duloxetine [From Cymbalta] Allergy (Verified 04/05/18 14:43) sweating badly, unable to remember full reaction gabapentin Allergy (Verified 04/05/18 14:43) unable to walk, feels like she has been heavily drugged latex [Latex] Allergy (Verified 04/05/18 14:43) allergy test- anaphlaxis. asthma milnacipran [From Savella] Allergy (Verified 04/05/18 14:43) sweating profusely and feeling bad morphine Allergy (Verified 04/05/18 14:43) Rash pregabalin [From Lyrica] Allergy (Verified 04/05/18 14:43) hallucinations soy Allergy (Verified 04/05/18 14:43) positive on allergy test Home Medications: Medication Instructions Recorded Oxycodone Ir [Oxy Ir 5 mg (RX)] QID 05/21/12 traZODone [traZODone 150MG (*)] 05/21/12 buPROPion XL [Wellbutrin 150mg XL] 09/17/13 Albuterol [Ventolin Hfa Inhaler] Q4H PRN 01/20/16 Hydroxychloroquine Sulfate 01/20/16 [Plaquenil 200 mg (*)] Buprenorphine [Butrans 20 mcg/hr] TD Q7D 07/22/16 FLUoxetine [Prozac 10 MG (*)] 07/22/16 Herbals/Supplements -Info Only 07/22/16 Olopatadine HCl [Patanase] 07/22/16 Ativan PRN PRN 04/04/18 Famotidine 04/04/18 Levothyroxine [Synthroid 137 mcg 04/04/18 (*)] Orencia 04/04/18 Restasis Opht Drops(*) 04/04/18 Zofran 04/04/18 Medical Decision Making ED Course/Re-evaluation: This is a well-appearing 62 y/o female who presents with a several-day history of vague complaints of "spaceiness" and dizziness. History does not sound consistent with vertigo. Neuro exam is unremarkable. I do not suspect stroke. There is nothing to suggest infection. Plan for IV, labs, EKG. No indication for imaging at this time. The 12 lead EKG was interpreted by myself. Sinus mechanism rate 51. See hard copy and/or "tracemaster" electronic copy for interpretation. Labs are normal. Reassessed patient and discussed findings. Exam remains unchanged. I do not recommend additional emergency department evaluation of her complaints. I explained to her that her complaints will likely resolve without further treatment or will change in some way that will direct the workup. Recommended outpatient follow up for unimproved symptoms. Return precautions discussed. She is comfortable with this plan. - Data Points Laboratory Results: Laboratory Results 05/13/18 11:10 05/13/18 11:10 Departure - Departure Disposition: Home, Routine, Self-Care Clinical Impression: Dizziness Condition: Good Instructions: Dizziness (ED) Additional Instructions: Follow up with your primary care provider this week for reevaluation if not completely improved. Return to the ED for worsening of condition. Referrals: Ingrid Funk MD [Primary Care Provider] - As per Instructions Report Scribed for: Lidia Shell Report Scribed by: Lin Forte Date of Report: 05/13/18 Time of Report: 12:53 Physician Review and Approval Statement: 05/13/18 12:18 Portions of this note were transcribed by the medical officer. I, Dr. Lidia Shell, personally performed the history, physical exam, and medical decision- making; and confirmed the accuracy of the information in the transcribed note.
[2018-05-13 14:05] VITALS: BP 123/77
== END 2018-05-13 14:05 | disposition home or self-care (01) ==
DX: R42 Dizziness and giddiness (principal); J45.909 Unspecified asthma, uncomplicated; Z87.891 Personal history of nicotine dependence; Z91.040 Latex allergy status

== ENCOUNTER 2018-09-06 13:16 | Emergency (ER) | payer OTHER, MEDICAID ==
--- NOTE | 2018-09-06 13:42 | EDPHY ---
H & P Time Seen by Provider: 09/06/18 13:39 HPI/ROS: CHIEF COMPLAINT: Epigastric pain and bilateral arm paresthesias HISTORY OF PRESENT ILLNESS: 63-year-old female with a history of rheumatoid arthritis and esophageal spasm here with approximately 2 hr of epigastric burning sensation and brief episode of bilateral arm paresthesias. She is that 2 hr ago she had a sudden onset of burning epigastric sensation of feels like prior episodes of known diagnosed esophageal spasm. She took 1 dose of nitro at home which is prescribed for her esophageal spasms. Paresthesias in her hands lasted about 15 min and self-resolved. She has no cardiac history including history of hypertension, dyslipidemia, smoking. She is not diabetic. REVIEW OF SYSTEMS: Constitutional: No fever, no chills. Eyes: No discharge. ENT: No sore throat. Cardiovascular: + chest pain, no palpitations. Respiratory: No cough, no shortness of breath. Gastrointestinal: No abdominal pain, no vomiting. Genitourinary: No hematuria. Musculoskeletal: No back pain. Skin: No rashes. Neurological: No headache. Smoking Status: Former smoker Physical Exam: General Appearance: Alert and no distress. Eyes: Pupils equal and round no injection. Respiratory: Chest is nontender, lungs are clear to auscultation. Cardiac: regular rate and rhythm. Gastrointestinal: Abdomen is soft and nontender, no masses, bowel sounds normal. Musculoskeletal: Neck is supple and nontender. Extremities have full range of motion and are nontender. Skin: No rashes or lesions. Constitutional: Initial Vital Signs Temperature (C) 37.2 C 09/06/18 13:22 Heart Rate 71 09/06/18 13:22 Respiratory Rate 18 09/06/18 13:22 Blood Pressure 123/86 H 09/06/18 13:22 O2 Sat (%) 93 09/06/18 13:22 O2 Delivery Mode Room Air Allergies/Adverse Reactions: duloxetine [From Cymbalta] Allergy (Verified 09/06/18 13:27) sweating badly, unable to remember full reaction gabapentin Allergy (Verified 09/06/18 13:27) unable to walk, feels like she has been heavily drugged latex [Latex] Allergy (Verified 09/06/18 13:27) allergy test- anaphlaxis. asthma milnacipran [From Savella] Allergy (Verified 09/06/18 13:27) sweating profusely and feeling bad morphine Allergy (Verified 09/06/18 13:27) Rash pregabalin [From Lyrica] Allergy (Verified 09/06/18 13:27) hallucinations soy Allergy (Verified 09/06/18 13:27) positive on allergy test Home Medications: Medication Instructions Recorded Oxycodone Ir [Oxy Ir 5 mg (RX)] QID 05/21/12 traZODone [traZODone 150MG (*)] 05/21/12 buPROPion XL [Wellbutrin 150mg XL] 09/17/13 Albuterol [Ventolin Hfa Inhaler] Q4H PRN 01/20/16 Hydroxychloroquine Sulfate 01/20/16 [Plaquenil 200 mg (*)] Buprenorphine [Butrans 20 mcg/hr] TD Q7D 07/22/16 Herbals/Supplements -Info Only 07/22/16 Olopatadine HCl [Patanase] 07/22/16 Ativan PRN PRN 04/04/18 Famotidine 04/04/18 Levothyroxine [Synthroid 137 mcg 04/04/18 (*)] Orencia 04/04/18 Restasis Opht Drops(*) 04/04/18 Zofran 04/04/18 LaMICtal 09/06/18 Medical Decision Making - Diagnostics Imaging Results: Imaging Impressions Chest X-Ray 09/06/18 13:54 Impression: No acute findings in the chest. ED Course/Re-evaluation: A 63-year-old female with no significant cardiac history here with symptoms consistent with prior esophageal spasm episodes. She did have bilateral arm paresthesias at this time. She is symptom-free upon arrival to the ER. EKG shows no ischemic changes. She had 2 troponins in the emergency room both which were negative. She was discharged stable condition will follow up with Cardiology. Differential Diagnosis: ACS, aortic dissection, esophageal spasm, gastritis, pancreatitis, panic attack - Data Points Laboratory Results: Laboratory Results 09/06/18 13:40 09/06/18 13:40 09/06/18 09/06/18 09/06/18 15:39 13:46 13:40 WBC RBC Hgb Hct MCV MCH MCHC RDW Plt Count MPV Neut % (Auto) Lymph % (Auto) [place] % (Auto) Eos % (Auto) Baso % (Auto) Nucleat RBC Rel Count Absolute Neuts (auto) Absolute Lymphs (auto) Absolute Monos (auto) Absolute Eos (auto) Absolute Basos (auto) Absolute Nucleated RBC Immature Gran % Immature Gran # Sodium 138 mEq/L mEq/L (135-145) Potassium 4.8 mEq/L mEq/L (3.3-5.0) Chloride 101 mEq/L mEq/L (97-110) Carbon Dioxide 26 mEq/l mEq/l (22-31) Anion Gap 11 mEq/L mEq/L (6-14) BUN 24 mg/dL H mg/dL (7-23) Creatinine 0.9 mg/dL mg/dL (0.6-1.0) Estimated GFR > 60 Glucose 79 mg/dL mg/dL (70-100) Calcium 9.9 mg/dL mg/dL (8.5-10.4) POC Troponin I 0.00 ng/mL ng/mL 0.00 ng/mL ng/mL (0.00-0.08) (0.00-0.08) Specimen Hemolysis 161 18 13:40 WBC 5.29 10^3/uL 10^3/uL (3.80-9.50) RBC 4.64 10^6/uL 10^6/uL (4.18-5.33) Hgb 14.0 g/dL g/dL (12.6-16.3) Hct 41.5 % % (38.0-47.0) MCV 89.4 fL fL (81.5-99.8) MCH 30.2 pg pg (27.9-34.1) MCHC 33.7 g/dL g/dL (32.4-36.7) RDW 13.8 % % (11.5-15.2) Plt Count 225 10^3/uL 10^3/uL (150-400) MPV 10.4 fL fL (8.7-11.7) Neut % (Auto) 46.8 % % (39.3-74.2) Lymph % (Auto) 41.2 % % (15.0-45.0) [place] % (Auto) 7.8 % % (4.5-13.0) Eos % (Auto) 3.2 % % (0.6-7.6) Baso % (Auto) 0.8 % % (0.3-1.7) Nucleat RBC Rel Count 0.0 % % (0.0-0.2) Absolute Neuts (auto) 2.48 10^3/uL 10^3/uL (1.70-6.50) Absolute Lymphs (auto) 2.18 10^3/uL 10^3/uL (1.00-3.00) Absolute Monos (auto) 0.41 10^3/uL 10^3/uL (0.30-0.80) Absolute Eos (auto) 0.17 10^3/uL 10^3/uL (0.03-0.40) Absolute Basos (auto) 0.04 10^3/uL 10^3/uL (0.02-0.10) Absolute Nucleated RBC 0.00 10^3/uL 10^3/uL (0-0.01) Immature Gran % 0.2 % % (0.0-1.1) Immature Gran # 0.01 10^3/uL 10^3/uL (0.00-0.10) Sodium Potassium Chloride Carbon Dioxide Anion Gap BUN Creatinine Estimated GFR Glucose Calcium POC Troponin I Specimen Hemolysis Medications Given: Discontinued Medications Lidocaine (Lidocaine 2% Viscous) 5 ml PO EDNOW ONE Stop: 09/06/18 13:55 Last Admin: 09/06/18 14:01 Dose: 5 ml Ondansetron HCl (Zofran) 4 mg IVP EDNOW ONE Stop: 09/06/18 14:15 Last Admin: 09/06/18 14:15 Dose: 4 mg Point of Care Test Results: Chemistry 09/06/18 09/06/18 15:39 13:46 POC Troponin I 0.00 ng/mL ng/mL 0.00 ng/mL ng/mL (0.00-0.08) (0.00-0.08) Departure - Departure Disposition: Home, Routine, Self-Care Clinical Impression: Esophageal spasm, Paresthesias/numbness Condition: Good Instructions: Paresthesia (ED) Additional Instructions: Follow-up with your terminal operator discuss outpatient stress testing in the next week. Referrals: Ingrid Funk MD [Primary Care Provider] - As per Instructions
[2018-09-06] MEDS: LIDOCAINE 2% VISCOUS 15 ML UDCUP PO ONE (14:01)
[2018-09-06] MEDS ORDERED: ONDANSETRON 4 MG/2 ML VIAL ONE (14:02)
[2018-09-06 14:06] LABS: PLATELET COUNT 225 10^3/uL (150-400)
[2018-09-06] MEDS: ONDANSETRON 4 MG/2 ML VIAL IVP ONE (14:15)
[2018-09-06] MEDS ORDERED: MAG HYDROX/AL HYDROX/SIMETH 30 ML UDCUP ONE (15:41)
[2018-09-06 16:21] VITALS: BP 130/85
--- NOTE | 2018-09-06 18:56 | CPEKG ---
Test Reason : OPEN Blood Pressure : / mmHG Vent. Rate : 060 BPM Atrial Rate : 060 BPM P-R Int : 159 ms QRS Dur : 073 ms QT Int : 437 ms P-R-T Axes : 073 061 020 degrees QTc Int : 437 ms Sinus rhythm Borderline T wave abnormalities Confirmed by Suman Neves ([id number]) on 09/06/2018 6:55:35 PM Referred By: Confirmed By:Suman Neves
== END 2018-09-06 16:22 | disposition home or self-care (01) ==
DX: K22.4 Dyskinesia of esophagus (principal); M06.9 Rheumatoid arthritis, unspecified
CPT/HCPCS: 71045; 93005; 96374; 99285; J2405; 84484-PO

== ENCOUNTER 2018-10-24 14:47 | Emergency (ER) | payer OTHER, MEDICAID ==
--- NOTE | 2018-10-24 15:00 | EDPHY ---
HPI/HX/ROS/PE/MDM Narrative: CHIEF COMPLAINT: Right leg pain HISTORY OF PRESENT ILLNESS: This is a 63-year-old female with a history of lupus, rheumatoid arthritis, and fibromyalgia who presents reporting that she developed cramping in her right calf 2 nights ago. She also developed cramping last night and then today noticed that her right calf was sore, painful with pain extending across the popliteal fossa and into the thigh. No shortness of breath. No swelling noted. No erythema. She has not taken anything for the discomfort. Patient tells me that she has a history of a blood clot in the same leg which did not require any treatment as it was too distal. She also reports that she had a blood clot on her perineum which I believe it was actually a Bartholin's cyst. Patient has never taken anticoagulants. She does not know if she has a lupus anticoagulant abnormality. She denies any fevers, chills, chest pain, shortness of breath, palpitations, lightheadedness, dizziness, or fainting. REVIEW OF SYSTEMS: A comprehensive 10 system review of systems is otherwise negative aside from elements mentioned in the history of present illness and medical decision making. PAST MEDICAL HISTORY: 1. Hypothyroid 2. Depression 3. Anxiety 4. Fibromyalgia 5. Arthritis 6. GERD 7. Cholecystectomy 8. Tonsillectomy, 9. Orthopedic surgeries 10. Lupus 11. Rheumatoid arthritis 12. Neuropathy 13. Bartholin gland removal SOCIAL HISTORY: Here with her daughter and grandchildren. Nonsmoker. VITAL SIGNS: Reviewed by me GENERAL: Well-developed, well-nourished, resting comfortably in no respiratory distress. HEENT: Benign exam. LUNGS: Clear to auscultation bilaterally, no wheezes, rhonchi or rales. CARDIAC: Regular rate and rhythm, no rubs, murmurs or gallops. ABDOMEN: Soft, nontender, nondistended, bowel sounds normal. BACK: No CVA tenderness. EXTREMITIES: No trauma. No edema. Patient reports mild tenderness to palpation in the right calf. Positive Homans sign. Calf does not appear to be swollen, not full, no warmth, no erythema. Range of motion is normal throughout. NEURO: Alert and oriented, grossly nonfocal. SKIN: Warm and dry, no rash. PSYCHIATRIC: Normal mentation, no agitation. Portions of this note were transcribed by a medical typist. I personally performed a history, physical exam, medical decision making, and confirmed accuracy of information the transcribed note. ED Course: 63 y/o female presents with history of blood clot in her RLE presents with right calf pain ongoing for two days. The calf does not appear to be swollen, not full, no warmth, no erythema. Right lower extremity ultrasound ordered. 16:[address] eMndez, radiologist. US RLE is negative for DVT. 16:37 Reassessed. Discussed imaging results. The patient reports that she is developing a migraine. In the past she has had good results with Toradol and Phenergan injections an asks for that to be administered. We also discussed symptomatic care of her calf pain. She will follow up with primary care physician as needed. MDM: Differential diagnosis for the patient's primary complaint of leg swelling was considered including but not limited to cellulitis, hypoalbuminemia, congestive heart failure, cor pulmonale, chronic venous stasis and DVT. - Data Points Imaging Results: Imaging Impressions Extremity Venous Study 10/24/18 15:09 Impression: No deep venous thrombosis in the right lower extremity. Findings discussed with Angie Sims MD at 16:23 hour, 10/24/2018. Imaging: Discussed imaging studies w/ call or contact centre team leader Radiologist General Time Seen by Provider: 10/24/18 14:59 Initial Vital Signs: Initial Vital Signs Temperature (C) 36.8 C 10/24/18 14:52 Heart Rate 76 10/24/18 14:52 Respiratory Rate 18 10/24/18 14:52 Blood Pressure 150/75 H 10/24/18 14:52 O2 Sat (%) 97 10/24/18 14:52 O2 Delivery Mode Room Air Allergies/Adverse Reactions: duloxetine [From Cymbalta] Allergy (Verified 10/24/18 14:55) sweating badly, unable to remember full reaction gabapentin Allergy (Verified 10/24/18 14:55) unable to walk, feels like she has been heavily drugged latex [Latex] Allergy (Verified 10/24/18 14:55) allergy test- anaphlaxis. asthma milnacipran [From Savella] Allergy (Verified 10/24/18 14:55) sweating profusely and feeling bad morphine Allergy (Verified 10/24/18 14:55) Rash pregabalin [From Lyrica] Allergy (Verified 10/24/18 14:55) hallucinations soy Allergy (Verified 10/24/18 14:55) positive on allergy test Home Medications: Medication Instructions Recorded Oxycodone Ir [Oxy Ir 5 mg (RX)] QID 05/21/12 traZODone [traZODone 150MG (*)] 05/21/12 buPROPion XL [Wellbutrin 150mg XL] 09/17/13 Albuterol [Ventolin Hfa Inhaler] Q4H PRN 01/20/16 Hydroxychloroquine Sulfate 01/20/16 [Plaquenil 200 mg (*)] Buprenorphine [Butrans 20 mcg/hr] TD Q7D 07/22/16 Herbals/Supplements -Info Only 07/22/16 Olopatadine HCl [Patanase] 07/22/16 Ativan PRN PRN 04/04/18 Famotidine 04/04/18 Levothyroxine [Synthroid 137 mcg 04/04/18 (*)] Orencia 04/04/18 Restasis Opht Drops(*) 04/04/18 Zofran 04/04/18 LaMICtal 09/06/18 Departure - Departure Disposition: Home, Routine, Self-Care Clinical Impression: Right leg pain Headache Qualifiers: Headache type: other headache syndrome Qualified Code(s): G44.89 - Other headache syndrome Condition: Good Instructions: Leg Pain (ED) Additional Instructions: Please stay well-hydrated. Use Tylenol if needed for leg pain and cramping. Gentle stretches may also be helpful. Observe for swelling in the leg, worsening pain, redness, warmth, or other concerns. Please follow up with primary care physician early next week if not improving as expected. Return to the emergency department if you are significantly worse, if you developed shortness of breath, chest pain, or other concerns. Referrals: Ingrid Funk MD [Primary Care Provider] - As per Instructions Report Scribed for: Angie Sims Report Scribed by: Fanta Kathleen Date of Report: 10/24/18 Time of Report: 15:16
[2018-10-24 16:08] VITALS: BP 130/89
[2018-10-24] MEDS ORDERED: KETOROLAC 30 MG/1 ML SDV IM ONE (16:41)
[2018-10-24] MEDS ORDERED: PROMETHAZINE HCL 25 MG/ML INJ IM ONE (16:42)
== END 2018-10-24 16:58 | disposition home or self-care (01) ==
DX: M79.661 Pain in right lower leg (principal); R51 Headache; M06.9 Rheumatoid arthritis, unspecified; L93.2 Other local lupus erythematosus; E03.9 Hypothyroidism, unspecified; Z86.2 Personal history of diseases of the blood and blood-forming organs and certain disorders involving the immune mechanism
CPT/HCPCS: 93971; 96372; 99285; J1885; J2550

== ENCOUNTER 2018-11-10 14:05 | Emergency (ER) | payer OTHER, MEDICAID ==
[2018-11-10] MEDS ORDERED: KETOROLAC 30 MG/1 ML SDV IVP ONE (15:12)
[2018-11-10] MEDS ORDERED: DEXAMETHASONE 10 MG/ML VIAL IVP ONE (15:12)
[2018-11-10] MEDS ORDERED: NS 1,000 ML IV ONE ×2 (15:12→15:19)
[2018-11-10] MEDS ORDERED: PROMETHAZINE HCL 25 MG/ML INJ IVP ONE (15:15)
--- NOTE | 2018-11-10 15:20 | EDPHY ---
HPI/HX/ROS/PE/MDM Narrative: CHIEF COMPLAINT: Headache HISTORY OF PRESENT ILLNESS: The patient is a 63 y/o female with a history of fibromyalgia, rheumatoid arthritis, lupus, and migraine headaches who arrives with her family complaining of intermittent daily headaches for the last several days. This is her third headache episode in the last three weeks and prior to that it had been "quite a while" since her last headache. She went to her headache clinic earlier this week with these symptoms and received IM Toradol and PO Phenergan with temporary improvement in her headache. Pain currently extends from her occiput around the right side of her head to her forehead, which is typical of her prior headaches though more intense today. She has associated photophobia and nausea without vomiting, which was temporarily helped by Zofran she took at home. She does not take a migraine suppressant medication and does not have abortive medications at home. Sleeping improves her pain and there is no obvious change with positioning. She says, "I' m under a tremendous amount of stress and I think that's what's bringing it on. " She also mentions she hit her head "hard" 2 days ago without loss of consciousness and this may have aggravated her preexisting headache and neck pain. Her daughter notes she also seems off balance, like she's "missing steps like she's trying to step over something but there's nothing there." It's unclear if this symptom began before or after the trauma to her head. She denies aspirin or anticoagulants. No fever, chills, cough, rhinorrhea, chest pain, shortness of breath, palpitations, vomiting, diarrhea, urinary complaints, lightheadedness, weakness , paresthesias. REVIEW OF SYSTEMS: Aside from elements discussed in the HPI, a comprehensive 10-point review of systems was reviewed and is negative. PAST MEDICAL HISTORY: 1. Hypothyroidism 2. Depression 3. Anxiety 4. Fibromyalgia 5. Rheumatoid Arthritis 6. GERD 7. Lupus 8. Neuropathy 9. Migraines - attends headache clinic 10. Neck pain PAST SURGICAL HISTORY: 1. Cholecystectomy 2. Tonsillectomy 3. Orthopedic surgeries 4. Bartholin gland removal SOCIAL HISTORY: Family at bedside. Nonsmoker. Prior medical records reviewed including ED visit 10/24/18 for right leg pain. VITAL SIGNS: Reviewed by me GENERAL: Well-developed, well-nourished, resting comfortably in no respiratory distress. HEENT: Atraumatic. Eyes: No icterus, no injection. Mouth: moist mucous membranes. No erythema or lesions. Neck: supple with no adenopathy. LUNGS: Clear to auscultation bilaterally, no wheezes, rhonchi or rales. CARDIAC: Regular rate and rhythm, no rubs, murmurs or gallops. ABDOMEN: Soft, nontender, nondistended, bowel sounds normal. BACK: No CVA tenderness. Topical pain patch on posterior right chest. Tenderness right paraspinous muscles and diffuse midline c-spine tenderness. EXTREMITIES: No trauma. No edema. Range of motion is normal throughout. NEURO: Alert and oriented, grossly nonfocal. Normal social services assistant strength bilaterally. Normal [id number] bilaterally. Normal [id number] bilaterally. Nonfocal cranial nerves. EOMs cause pain. SKIN: Warm and dry, no rash. PSYCHIATRIC: Normal mentation, no agitation. Portions of this note were transcribed by a medical office technology instructor. I personally performed a history, physical exam, medical decision making, and confirmed accuracy of information the transcribed note. ED Course: This is a 63 y/o female with a history of several chronic medical conditions including lupus, RA, and fibromyalgia who presents with a several-day history of daily right-sided headaches with associated nausea and photophobia. She also reports recent head trauma two days ago that aggravated her symptoms and potentially caused some difficulty balancing that her daughter noticed this weekend. She has a nonfocal neuro exam and both diffuse midline and paraspinous cervical tenderness that is worse than baseline per patient. Symptoms likely represent a breakthrough migraine, but due to increased intensity and frequency , report of head trauma, and no recent neuroimaging, I've recommended a head CT and angio head and neck CTA for further evaluation, which she agrees to. IV established and labs drawn. 2L IV NS, 10mg IV Decadron, 10mg IV Phenergan, and 30mg IV Toradol ordered for symptoms. EKG ordered. The 12 lead EKG was ordered. EKG was delayed in obtaining. Head CT: negative for acute findings. Head and neck CTA: negative for acute findings. 1640: Reassessed patient. She is feeling improved, but continues to have pain. She mentions she would like to go home where it's quiet, but wants to control her pain better here first. 5mg IV Reglan, 25mg IV Benadryl, and 0.5mg IV Dilaudid ordered. EKG obtained at this time. Patient had received Reglan as mentioned above. Interpreted by myself. Prolonged QT seen. See hard copy and/or "tracemaster" electronic copy for interpretation. DW patient and will have her follow up with PCP. MDM: After history was obtained, and the physical exam performed, a differential for headache was considered including, but not limited to, subarachnoid hemorrhage, migraine headache, tension headache and infectious causes such as meningitis, sinusitis, encephalitis. - Data Points Imaging: Discussed imaging studies w/ manager call center Radiologist, I viewed and interpreted images myself Laboratory Results: Laboratory Results 11/10/18 15:35 11/10/18 15:35 Medications Given: Discontinued Medications Dexamethasone (Decadron Injection) 10 mg IVP EDNOW ONE Stop: 11/10/18 15:13 Last Admin: 11/10/18 15:30 Dose: 10 mg Diphenhydramine HCl (Benadryl Injection) 25 mg IVP EDNOW ONE Stop: 11/10/18 16:44 Last Admin: 11/10/18 16:55 Dose: 25 mg Hydromorphone HCl (Dilaudid) 0.5 mg IVP EDNOW ONE Stop: 11/10/18 16:44 Last Admin: 11/10/18 16:56 Dose: 0.5 mg Sodium Chloride (Ns) 1,000 mls @ 0 mls/hr IV ONCE ONE; Wide Open PRN Reason: Protocol Stop: 11/10/18 15:13 Last Admin: 11/10/18 15:29 Dose: 1,000 mls Sodium Chloride (Ns) 1,000 mls @ 0 mls/hr IV ONCE ONE; Wide Open PRN Reason: Protocol Stop: 11/10/18 15:20 Last Admin: 11/10/18 15:29 Dose: 1,000 mls Ketorolac Tromethamine (Toradol) 30 mg IVP EDNOW ONE Stop: 11/10/18 15:13 Last Admin: 11/10/18 15:29 Dose: 30 mg Metoclopramide HCl (Reglan Injection) 5 mg IVP ONCE ONE Stop: 11/10/18 16:46 Last Admin: 11/10/18 16:56 Dose: 5 mg Promethazine HCl (Phenergan) 12.5 mg IVP EDNOW ONE Stop: 11/10/18 15:16 Last Admin: 11/10/18 15:29 Dose: 12.5 mg Point of Care Test Results: Chemistry 11/10/18 15:40 POC Sodium 138 mEq/L mEq/L (135-145) POC Potassium 4.3 mEq/L mEq/L (3.3-5.0) POC Chloride 101 mEq/L mEq/L (97-110) POC BUN 21 mg/dL mg/dL (7-23) POC Creatinine 1.1 mg/dL H mg/dL (0.6-1.0) POC Glucose 81 mg/dL mg/dL (70-100) ISTAT H&H 11/10/18 15:40 POC Hgb 13.9 gm/dL gm/dL (12.6-16.3) POC Hct 41 % % (38-47) General Initial Vital Signs: Initial Vital Signs Temperature (C) 36.7 C 11/10/18 14:11 Heart Rate 76 11/10/18 14:11 Respiratory Rate 16 11/10/18 14:11 Blood Pressure 101/73 11/10/18 14:11 O2 Sat (%) 98 11/10/18 14:11 O2 Delivery Mode Room Air Allergies/Adverse Reactions: duloxetine [From Cymbalta] Allergy (Verified 10/24/18 14:55) sweating badly, unable to remember full reaction gabapentin Allergy (Verified 10/24/18 14:55) unable to walk, feels like she has been heavily drugged latex [Latex] Allergy (Verified 10/24/18 14:55) allergy test- anaphlaxis. asthma milnacipran [From Savella] Allergy (Verified 10/24/18 14:55) sweating profusely and feeling bad morphine Allergy (Verified 10/24/18 14:55) Rash pregabalin [From Lyrica] Allergy (Verified 10/24/18 14:55) hallucinations soy Allergy (Verified 10/24/18 14:55) positive on allergy test Home Medications: Medication Instructions Recorded Oxycodone Ir [Oxy Ir 5 mg (RX)] QID 05/21/12 traZODone [traZODone 150MG (*)] 05/21/12 buPROPion XL [Wellbutrin 150mg XL] 09/17/13 Albuterol [Ventolin Hfa Inhaler] Q4H PRN 01/20/16 Hydroxychloroquine Sulfate 01/20/16 [Plaquenil 200 mg (*)] Buprenorphine [Butrans 20 mcg/hr] TD Q7D 07/22/16 Herbals/Supplements -Info Only 07/22/16 Olopatadine HCl [Patanase] 07/22/16 Ativan PRN PRN 04/04/18 Famotidine 04/04/18 Levothyroxine [Synthroid 137 mcg 04/04/18 (*)] Orencia 04/04/18 Restasis Opht Drops(*) 04/04/18 Zofran 04/04/18 LaMICtal 09/06/18 Diazepam [Valium 2 MG (*)] 2 mg PO TID PRN #10 tab 11/10/18 Departure - Departure Disposition: Home, Routine, Self-Care Clinical Impression: Migraine Qualifiers: Migraine type: unspecified Status migrainosus presence: without status migrainosus Intractability: not intractable Qualified Code(s): G43.909 - Migraine, unspecified, not intractable, without status migrainosus Condition: Good Instructions: Migraine Headache (ED) Additional Instructions: Follow up with your headache specialist or a neurologist in the next week to discuss management of your headaches. You been given a prescription for Valium. You may use this if needed for severe neck pain. It is a muscle relaxant. Return to the ED for worsening of condition. I will discuss your EKG with cardiology and with Dr Funk. You will need to follow up with your PCP. Referrals: Ingrid Funk MD [Primary Care Provider] - As per Instructions Kwesi Benedict MD [Medical Doctor] - As per Instructions Prescriptions: Diazepam [Valium 2 MG (*)] 2 mg PO TID PRN #10 tab PRN Reason: Muscle spasm Report Scribed for: Angie Sims Report Scribed by: Lin Forte Date of Report: 11/10/18 Time of Report: 14:59
[2018-11-10] MEDS ORDERED: DEXAMETHASONE 4 MG/ML VIAL ONE (15:26)
[2018-11-10] MEDS ORDERED: IOPAMIDOL (ISOVUE 370) 100 ML BTL IV ONE (15:44)
[2018-11-10 15:55] LABS: PLATELET COUNT 227 10^3/uL (150-400)
[2018-11-10] MEDS ORDERED: HYDROmorphONE/DILAUDID 2 MG/ML INJ IVP ONE (16:43)
[2018-11-10] MEDS ORDERED: METOCLOPRAMIDE 10 MG/2 ML VIAL IVP ONE (16:45)
[2018-11-10 18:08] VITALS: BP 130/79
--- NOTE | 2018-11-10 23:40 | CPEKG ---
Test Reason : OPEN Blood Pressure : / mmHG Vent. Rate : 069 BPM Atrial Rate : 069 BPM P-R Int : 161 ms QRS Dur : 079 ms QT Int : 558 ms P-R-T Axes : 057 042 -23 degrees QTc Int : 598 ms Sinus rhythm Prolonged QT interval Confirmed by Angie Sims ([id number]) on 11/10/2018 11:39:54 PM Referred By: Confirmed By:Angie Sims
== END 2018-11-10 18:07 | disposition home or self-care (01) ==
DX: G43.909 Migraine, unspecified, not intractable, without status migrainosus (principal); E86.9 Volume depletion, unspecified
CPT/HCPCS: 70450; 70496; 70498; 93005; 96361; 96374; 96375; 99285; J1100; J1170; J1200; J1885; J2550; J2765; Q9967; 82435-PO; 82565-PO; 82947-PO; 84132-PO; 84295-PO; 84520-PO; 85014-PO

== ENCOUNTER → 2018-11-13 | Outpatient (CLI) | payer OTHER, MEDICAID | LOC: FIMAGING 10:12 | PROVIDERS: ATTEND Internal Medicine | DX: N63.11 Unspecified lump in the right breast, upper outer quadrant (principal) ==

== ENCOUNTER → 2018-12-17 | Outpatient (CLI) | payer OTHER, MEDICAID | LOC: FIMAGING 13:19 | PROVIDERS: ATTEND Internal Medicine Rheumatology | DX: Z13.820 Encounter for screening for osteoporosis (principal); M81.0 Age-related osteoporosis without current pathological fracture; Z78.0 Asymptomatic menopausal state ==